=== PATIENT | female | born 1930 | race Caucasian/White ===

== ENCOUNTER 2016-10-28 19:44 | Emergency (ER) | payer MEDICARE, OTHER ==
[~2016-10-28] VITALS: Ht 152.4 cm; Wt 90.7 kg
[~2016-10-28 19:44] MED LIST: ALBUTEROL2.5 MG/3 M INH; ASPIRIN EC81 MG PO; ATROVENT HFA12.9 GM INH; CIPROFLOXACIN500 MG PO; CLARITHROMYCIN250 MG PO; CLOTRIMAZOLE15 GM TP; DONEPEZIL HCL10 MG PO; DONEPEZIL HCL5 MG PO; DUONEB 0.5 MG-33 ML INH; ELOCON15 GM TOP; FUROSEMIDE20 MG PO; IPRAT-ALBUT 0.5-3 ML INH; ISOSORBIDE MONO30 MG PO; LIDODERM700 MG TOP; LISINOPRIL; LISINOPRIL10 MG PO; METOPROLOL TART25 MG PO; METRONIDAZOLE250 MG PO; NITROGLYCERIN0.4 MG SL; NORCO 5-325 TA1 EACH PO; PREDNISONE20 MG PO; QVAR7.3 GM IH; SULFAMETHOXAZO1 EAC1 PO; SYMBICORT 16010.2 GM INH; SYNTHROID50 MCG PO; TRAMADOL HCL50 MG PO; TRAZODONE HCL50 MG PO; VITAMIN D250000 UNIT PO; ZANTAC150 MG PO; ZESTRIL5 MG PO
--- NOTE | 2016-10-29 09:50 | NUR ---
Alzheimer patient having hallucinations. Was admitted for an infection. Son and [id number] with her. Wanted a chemistry technical officer because she was hallucinating a devil--named Rasheed. Prayed with her and assured her that God was protecting her and that the devil couldn't harm her. She was released to [facility], where she lived.
== END 2016-10-28 22:59 | disposition home or self-care (01) ==
LOC: ED 19:44
DX: R44.3 Hallucinations, unspecified (principal); R10.31 Right lower quadrant pain; F03.90 Unspecified dementia, unspecified severity, without behavioral disturbance, psychotic disturbance, mood disturbance, and anxiety; I10 Essential (primary) hypertension; J44.9 Chronic obstructive pulmonary disease, unspecified; E03.9 Hypothyroidism, unspecified; E78.00 Pure hypercholesterolemia, unspecified; F41.9 Anxiety disorder, unspecified; Z87.891 Personal history of nicotine dependence; Z90.49 Acquired absence of other specified parts of digestive tract; Z90.710 Acquired absence of both cervix and uterus; Z88.0 Allergy status to penicillin; Z91.040 Latex allergy status; Z91.013 Allergy to seafood; Z91.018 Allergy to other foods; Z79.899 Other long term (current) drug therapy; Z79.891 Long term (current) use of opiate analgesic; Z79.82 Long term (current) use of aspirin
CPT/HCPCS: 70450; 71020; 74177; 80053; 81001; 83605; 83690; 85025; 87040; 96374; 96375; 99284; J1630; J2405; Q9967

== ENCOUNTER 2017-01-18 22:52 | Emergency (ER) | payer MEDICARE, OTHER ==
[~2017-01-18] VITALS: Ht 160 cm; Wt 88.0 kg
[2017-01-19] MEDS ORDERED: TRAMADOL HCL50 MG PO (01:24)
== END 2017-01-19 01:55 | disposition home or self-care (01) ==
LOC: ED 22:52
DX: S30.1XXA Contusion of abdominal wall, initial encounter (principal); I10 Essential (primary) hypertension; J44.9 Chronic obstructive pulmonary disease, unspecified; E03.9 Hypothyroidism, unspecified; E78.00 Pure hypercholesterolemia, unspecified; F41.9 Anxiety disorder, unspecified; Z87.891 Personal history of nicotine dependence; Z90.49 Acquired absence of other specified parts of digestive tract; Z90.710 Acquired absence of both cervix and uterus; Z85.3 Personal history of malignant neoplasm of breast; Z90.12 Acquired absence of left breast and nipple; Z88.0 Allergy status to penicillin; Z91.040 Latex allergy status; Z91.013 Allergy to seafood; Z91.018 Allergy to other foods; Z88.8 Allergy status to other drugs, medicaments and biological substances; Z79.899 Other long term (current) drug therapy; Z79.82 Long term (current) use of aspirin; W22.8XXA Striking against or struck by other objects, initial encounter
CPT/HCPCS: 71020; 73502; 81001; 99283

== ENCOUNTER 2017-01-21 15:03 | Emergency (ER) | payer MEDICARE, OTHER ==
[~2017-01-21] VITALS: Ht 160 cm; Wt 88.0 kg
[2017-01-21] MEDS ORDERED: QUETIAPINE FUMA25 MG PO (15:43)
[2017-01-21] MEDS ORDERED: NYSTATIN15 G2 TOP (15:44)
[2017-01-21] MEDS ORDERED: NORCO 5-325 TA1 EACH PO (15:52)
== END 2017-01-21 16:05 | disposition home or self-care (01) ==
LOC: ED 15:03
DX: M25.511 Pain in right shoulder (principal); I10 Essential (primary) hypertension; J44.9 Chronic obstructive pulmonary disease, unspecified; E03.9 Hypothyroidism, unspecified; E78.00 Pure hypercholesterolemia, unspecified; F41.9 Anxiety disorder, unspecified; Z87.891 Personal history of nicotine dependence; Z90.49 Acquired absence of other specified parts of digestive tract; Z90.710 Acquired absence of both cervix and uterus; Z90.12 Acquired absence of left breast and nipple; Z85.3 Personal history of malignant neoplasm of breast; Z88.0 Allergy status to penicillin; Z91.040 Latex allergy status; Z88.8 Allergy status to other drugs, medicaments and biological substances; Z91.018 Allergy to other foods; Z91.013 Allergy to seafood; Z79.899 Other long term (current) drug therapy; Z79.82 Long term (current) use of aspirin
CPT/HCPCS: 73030; 99283

== ENCOUNTER 2017-02-06 15:07 | Inpatient (IN) | payer MEDICARE, OTHER ==
[~2017-02-06] VITALS: Ht 160 cm; Wt 89.7 kg
[~2017-02-06 15:07] MED LIST changes: +NYSTATIN15 G2 TOP; +QUETIAPINE FUMA25 MG PO
[2017-02-06] MEDS ORDERED: SUPER B-50 COM1 EACH PO (15:44)
[2017-02-06] MEDS ORDERED: VITAMIN D32000 UNIT PO (15:45)
[2017-02-06] MEDS ORDERED: ACETAMINOPHEN325 M1 PO (15:46)
[2017-02-06] MEDS ORDERED: CHAMOSYN OINTMEN5 GM TOP (15:48)
[2017-02-06] MEDS ORDERED: LOPERAMIDE2 MG PO (15:49)
--- NOTE | 2017-02-06 16:04 | EKG ---
[facility] [address] [facility] [place] [address] Signed Sinus rhythm with premature supraventricular complexes and with occasional premature ventricular complexes Low voltage QRS Junctional ST depression, probably normal Borderline ECG When compared with ECG of 06-AUG-2016 17:16, premature ventricular complexes are now present premature supraventricular complexes are now present Right bundle branch block is no longer present Confirmed by ALISSA PAINTER MD ([id number]) on 02/06/2017 4:04:40 PM Electronically Signed By: ALISSA PAINTER MD 02/06/17 1604 PATIENT NAME: MAGALI REBOLLEDO Electrocardiogram DATE OF : [birth year] PHYSICIAN: ALISSA PAINTER MD REPORT #: [id number] REPORT IS CONFIDENTIAL AND NOT TO BE RELEASED WITHOUT AUTHORIZATION
--- NOTE | 2017-02-06 19:06 | NUR ---
PATIENT TO FLOOR AT SHIFT CHANGE FROM ED. GENE CUEVAS TOOK REPORT, PATIENT SETTLED IN BED, APPEARS PAINFUL TO RIGHT SIDE. DAUGHTER STATES " SHE FAVORS HER LEFT SIDE BECAUSE OF THE FALL." NOTED SKIN BREAKDOWN TO BOTTOM, PATIENT DAUGHTER STATED " ITS CAUSE SHE REFUSED TO GET UP AT HOME AND WOULD JUST LAY IN ONE POSITION". ATTEND PROVIDED, REPORTED PATIENT UP TO BSC IN ED, 2 PERSON ASSIST. ON 2L NC 94%, AFEBRILE. VS STABLE. CALL LIGHT WITHIN REACH. FAMILY LEFT TO GET PATIENT FOOD TO EAT FOR DINNER, PATIENT ON REGULAR DIET. SHIFT REPORT TO JAYLEN CUEVAS.
--- NOTE | 2017-02-06 20:00 | NUR ---
RECEIVED REPORT AT 1900. PT JUST ARRIVED FROM ED. PT STATED THAT HER LEGS WERE PAINFUL.
--- NOTE | 2017-02-06 22:45 | NUR ---
V/S ARE WDL, PT RECEIVED TRAMADOL 50MG PO X1 FOR BACK PAIN, EDEMA IN BOTH FEET IS +3, DORSALIS PEDIS HAD TO BE LOCATED VIA DOPPLER, BILATERAL LEG EDEMA +2. PT COMPLAINS OF INTERMITTEN NUMBNESS. FEET AND LEGS ARE WARM TO TOUCH. ALL LOBES ARE DIMINISHED BUT CLEAR. 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
--- NOTE | 2017-02-07 00:20 | NUR ---
PT IS SLEEPING AT THIS TIME.
--- NOTE | 2017-02-07 02:39 | NUR ---
V/S ARE WDL, BILATERAL LOWER LOBES HAVE CRACKLES, UPPER LOBES HAVE EXPIRATORY WHEEZING. PAIN IS WELL CONTROLLED WITH PRN ULTRAM 50MG. EDEMA IN BOTH LEGS AND FEET HAS NOT CHANGED. PT AT THIS TIME DENIES NUMBNESS AND TINGLING THOUGH. URINE OUTPUT IS ABOUT 31.25ML/HR. PICTURES OF BUTTOCKS WERE TAKEN, PT HAS SEVERAL OPEN SPOTS ON HER RIGHT BUTTOCKS AND ON HER COCCYX. PT IS UNABLE TO TURN TO LEFT SIDE DUE TO RIB AND SHOULDER PAIN. PLEASE SEE PT FILE. ALLEVYN WAS APPLIED ON COCCYX. PT IS BACK IN BED.
--- NOTE | 2017-02-07 06:03 | NUR ---
PT ARRIVED ON FLOOR AT 1900. PT COMPLAINED OF NUMBNESS AND TINGLING IN BOTH LEGS AT THAT TIME. DORSALIS PEDIS PULSES WERE LOCATED WITH DOPPLER ONLY. EDEMA ON BOTH FEET IS +4, EDEMA ON BOTH LOWER LEGS IS +2. LEGS AND FEET ARE WARM TO TOUCH AND PT IS ABLE TO STAND BUT IS VERY WEAK OVERALL. V/S ARE WDL. HER URINE OUTPUT HAS BEEN MARFINAL AT 31ML/HR BETWEEN [phone]. PO INTAKE WAS ENCOURAGED. PT HAS RIGHT SIDED PAIN OH SHOULDER AND RIBS DUE TO A FALL 2 WKS AGO STATED BY PT. PT IS ANSWERING ALL QUESTIONS APPROPRIATELY. PRN TRAMADOL IS EFFECTIVE IN CONTROLLING HER PAIN. 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 AT START OF SHIFT ALL LOBES HAD EXPIRATORY WHEEZING. AT 0300 LOWER LOBES BILAT. HAD CRACKELS AND BILAT. UPPER LOBES HAD EXPIRATORY WHEEZING. AT TIMES PT APPEARS SOB. O2 SATS HAVE BEEN >90% ON 2L O2 NC SO FAR.
--- NOTE | 2017-02-07 07:10 | NUR ---
RASH AWARE OF LOW URINE OUTPUT.
--- NOTE | 2017-02-07 09:26 | NUR ---
VERY BRIEF VISIT WITH PT, SHE IS HARD OF HEARING AND I DID NOT WANT TO SHOUT AND DISTURB EVERYONE SO I PRAYED WITH HER ANF LEFT.
--- NOTE | 2017-02-07 09:26 | NUR ---
PATIENT ASSISTED BACK TO BED FROM [place]. PATIENT HAD LOOSE STOOL. PATIENT VOIDED SMALL AMOUNT. ASSISTED BACK TO BED WITH TWO ASSIST. PATIENT HAS SOME WEAKNESS AND NEEDING ASSISTANCE. WOB INCREASED WITH ACTIVITY. PATIENT IS ALERT AND ORIENTED TO SELF AND LOCATION. PATIENT HAS DIMINISHED LUNG SOUNDS. C/O PAIN IN R SIDE. LIDOCANE PATCH PLACED ON R SIDE. EDEMA NOTED IN L AND R PEDAL AREA. PEDAL PULSES UNABLE TO PALPATE NEEDING DOPPLER.
--- NOTE | 2017-02-07 10:01 | NUR ---
PATIENT CALLED TO USE THE BSC. ASSISTED WITH A TWO ASSIST. LOOSE STOOL. ASSISTED BACK TO BED.
--- NOTE | 2017-02-07 10:51 | NUR ---
PATIENT RESTING IN BED. EYES CLOSED. PATIENT TOLERATED IV ANTIBIOTICS WELL. NO OTHER ISSUES AT THIS TIME. WILL CONTINUE TO MONITOR.
--- NOTE | 2017-02-07 12:50 | NUR ---
LOW UOP. PATIENT HAS HAD SEVERAL LOOSE STOOL WITH NO NEW URINE. UPDATED DR. PAINTER. NO NEW ORDERS AT THIS TIME. SON OF PATIENT WAS ASKING FOR CONSULT WITH DR. OCAMPO IN REGARDS TO OLD CYSTS. PLAN TO TREAT OUTPATIENT. PATIENT WAS REPOSITIONED IN BED. PILLOWS PLACED UNDER HEELS AND TO SIDES. EDUCATED PATIENT ABOUT CHANGING POSTION IN BED. CONTINUE TO HAVE EDEMA BILATERALLY. BARRIER CREAM APPLIED TO BUTTOCKS WITH C/O ITCHING. PATIENT TOOK OFF BADAGES STATING, " THEY ARE ITCHING ME". WILL CONTINUE TO MONITOR.
--- NOTE | 2017-02-07 15:29 | NUR ---
patient turned. tolerated well.
--- NOTE | 2017-02-07 15:43 | NUR ---
patient voided. patient c/o itching. patient has rash on groin and looks very irritated. patient assist to the br for bath. patient tolerated well. updated dr. car on skin condition.
--- NOTE | 2017-02-07 16:00 | NUR ---
PATIENT PARTICIPATED WITH PT.TOLERATED STADING ON EDGE OF BED WITH WALKER. NOT ABLE TO STAND FOR LONG. WAS ANXIOUS ABOUT AMBULATING IN ROOM. NO PAIN AT THIS TIME.
--- NOTE | 2017-02-07 17:14 | NUR ---
PATIENT RESTING WITH HOB ELEVATED. NO PAIN AT THIS TIME. WILL CONTINUE TO MONITOR.
--- NOTE | 2017-02-07 17:55 | NUR ---
PATIENT TOLERATED DINNER WELL. SITTING UP IN BED.
--- NOTE | 2017-02-07 18:31 | NUR ---
PATIENT ASSISTED TO BSC. PATIENT STATING R SIDE OF BUTTOCKS STARTING TO HURT. TRAMADOL GIVEN 50 MG. PATIENT WAS ABLE TO VOID 200MLS AND SMALL AMOUNT IN ATTENDS. NYSTATIN PLACED ON PANNUS AND PILLOW CASE PLACED BETWEEN SKIN FOLDS. ALOE CREAM PLACED ON BUTTOCKS. PATIENT IS REFUSING TO REDRESS OPEN AREA ON COCCYX. EDUACTION PATIENT. PATIENT STATING THIS IS THE REASON SHE IS ITCHY AND WILL NOT DO IT.
--- NOTE | 2017-02-07 18:39 | NUR ---
PATIENT HAS WORKED WITH PT. STANDING BY BED. WALKER AT BEDSIDE. CALLING. PATIENT REFUSED TO WEAR BANDAGE ON COCCYX. CREAM APPLIED. NYSTATIN PLACED UNDER PANNUS. DEMENTIA BUT ORIENTED TO SELF AND LOCATION. NEEDING REMINDERS. PLATINUM. +4 EDEMA BILATERALLY. LOW GRADE TEMP. TRADADOL GIVEN FOR PAIN.
--- NOTE | 2017-02-07 20:00 | NUR ---
RECEIVED REPORT AT 1900. FOUND PT IN BED TALKING WITH FAMILY IN ROOM. PT SEEMED IN GOOD SPIRITS.
--- NOTE | 2017-02-07 22:00 | NUR ---
AT 2100 HER TEMP WAS 99.1, PRN TYLENOL PO WAS GIVEN PER ORDER. WILL CONTINUE TO MONITOR. ALL OTHER V/S WERE WDL. BILATERAL LOWER LOBES HAVE CRACKLES, UPPER LOBES ARE DIMINISHED BUT CLEAR AT THIS TIME. PT SEEMS PHYSICALLY STRONGER TODAY. EDEMA BILATERALLY ON HER FEETIS +3, BILATERALLY LOWER LEG EDEMA IS +2. DORSALIS PEDIS BILATERALLY IS ONLY NOTED WITH DOPPLER. PT REMOVED HER LIDOCAIN PATCH AT SOME POINT DURING THE DAY STATED BY HER. URINE OUTPUT IS STILL INADEQUATE, MD AWARE. NO NEW ISSUES NOTED SO FAR.
--- NOTE | 2017-02-07 23:00 | NUR ---
PT VOIDED OVER 400ML.
--- NOTE | 2017-02-07 23:56 | NUR ---
PT IS SLEEPING AT THIS TIME
--- NOTE | 2017-02-08 02:15 | NUR ---
ASSISTED PT TO [facility]. PT VOIDED. PT NOW BACK IN BED.PT AT THIS TIME IS AFEBRILE. BILATERAL LOWER LOBES STILL HAVE CRACKLES.
--- NOTE | 2017-02-08 03:56 | NUR ---
PT IS SLEEPING.
--- NOTE | 2017-02-08 05:34 | NUR ---
AT START OF SHIFT PT HAD A TEMP OF 99.1, PRN TYLENOL WAS GIVEN. URINE OUTPUT AT THAT TIME WAS MARGINAL AT BEST. AT 0200 TEMP WAS 98.1 AND PT HAS REMAINED AFEBRILE SINCE. URINE OUPTPUT HAS ALSO INCREASED ABOVE MINIMUM. PO INTAKE WAS ENCOURAGED. PT AT TIMES IS STILL VERY PAINFUL ON HER RIGHT SIDE AND RECEIVED TRAMADOL 50MG X2 THIS SHIFT. PT HAS BEEN ALERT AND ORIENTED X4 ALL SHIFT. BILATERALLY HER LOWER LOBES HAVE CRACKLES, HER UPPER LOBES ARE CLEAR BUT DIMINISHED. EDEMA IN BOTH FEET IS STILL +3-4, EDEMA IN LOWER LEGS IS +2. BOTH FEET ARE WARM TO TOUCH. PT ALSO SEEMS STRONGER THIS SHIFT THAN YESTERDAY.
--- NOTE | 2017-02-08 07:37 | NUR ---
REPORT RECIEVED FROM MASON MAYA. PT ASLEEP SITTING UP IN BED.
--- NOTE | 2017-02-08 10:04 | NUR ---
PT USED BEDSIDE COMMODE AND IS NOW SITTING UP IN BED SAFELY WITH CALL LIGHT IN REACH. PT AGREED TO SHOWER BUT WOULD LIKE TO WAIT
--- NOTE | 2017-02-08 11:47 | NUR ---
PT IV WENT BAD AFTER SHOWER. PT ALSO STATES SHE IS ITCHING. UP TO BEDSIDE COMMODE. APPLIED DESITIN AND NYSTATIN POWDER TO REDDENED AREA ON REAR.
--- NOTE | 2017-02-08 11:55 | NUR ---
DR JAMIL OK'D TO LEAVE IV OUT.
--- NOTE | 2017-02-08 13:36 | NUR ---
PT SHOWERED AND LOTION APPLIED ALL OVER BODY FOR DRY AND ITCHY SKIN. DESITIN APPLIED TO RADHA AREA AGAIN. PT UP TO BEDSIDE COMMODE.
--- NOTE | 2017-02-08 13:39 | NUR ---
PT CONTINUES TO DECLINE ALLYVN TO COCCYX AREA. STATES IT MAKE IT ITCH MORE.
--- NOTE | 2017-02-08 18:14 | NUR ---
PT DID WELL TODAY. WALKED WITH FEDERAL DISTRICT CLERK. ULTRAM GIVEN ONCE FOR RIB PAIN. LIDODERM PATCH IN PLACE. SWELLING REMAINS UNCHANGED. LUNGS CLEAR. 1PA TO COMMODE.
--- NOTE | 2017-02-08 20:00 | NUR ---
RECEIVED REPORT AT 1900. FOUND PT IN BED SLEEPING.
--- NOTE | 2017-02-08 22:00 | NUR ---
V/S ARE WDL. ALL LOBES HAD EXIPRATORY WHEEZING EVEN AFTER BREATHING TREATMENT. EDEMA IN BOTH FEET IS STILL +3, BOTH LOWER LEGS EDEMA IS STILL +2. PT RECEIVED TRAMADOL 50MG X2 SINCE START OF SHIFT DUE TO RIGHT SIDED HIP PAIN. OVERALL PT SEEMS STRONGER TODAY. SON IS WILLING TO DO LOVENOX SHOTS. I DID EDUCATE HIM ON HOW TO DO IT. HE WILL DO HANDS ON TOMORROW. NO NEW ISSUES NOTED SO FAR.
--- NOTE | 2017-02-09 00:07 | NUR ---
PT IS SLEEPING.
--- NOTE | 2017-02-09 02:04 | NUR ---
PT IS SLEEPING.
--- NOTE | 2017-02-09 02:26 | NUR ---
ASSISTED PT TO BSC. PT VOIDED 100ML. PT AT THIS TIME IS SITTING UP AT SIDE OF BED. ALL LOBES ARE CLEAR AT THIS TIME. BILATERAL FOOT AND LOWER LEG EDEMA IS UNCHANGED. NO NEW ISSUES NOTED SO FAR.
--- NOTE | 2017-02-09 03:58 | NUR ---
PT IS STILL SITTING AT SIDE OF BED. PT APPEARS TO BE DOZING.
--- NOTE | 2017-02-09 05:14 | NUR ---
AT START OF SHIFT PT HAD EXIPRATORY WHEEZING THROUGHOUT. I EDUCATED HER SON ON HOW, PT WAS VERY PAINFUL AT FIRST AND RECEIVED 50MG OF TRAMADOL X2 AND 650MG OF TYLENOL. TO ADMINISTER LOVENOX SHOTS. THROUGHOUT SHIFT V/S HAVE BEEN WDL, EDEMA ON FEET IS +3 AND EDEMA ON LOWER LEGS IS +2, PT HAD A BM X1. PT HAS NOT BEEN SLEEPING SINCE ABOUT 0400 OR SO. PT STILL REFUSES TO BE TURNED TO HER RIGHT SIDE. NO NEW ISSUES NOTED.
--- NOTE | 2017-02-09 07:32 | NUR ---
REPORT RECIEVED FROM JAYLEN. PT SITTING UP ON EDGE OF BED AND REPORTS NOT SLEEPING WELL LAST NIGHT.
--- NOTE | 2017-02-09 08:03 | NUR ---
CALLED PHARM. TO HAVE THYROID MED RETIMED. ADMINISTERED MORN. MEDS. PT NOW SITTING UP IN CHAIR EATING BREAKFAST. PT GIVEN PRN ULTRAM AND LIDO PATCH FOR PAIN 5\10.
--- NOTE | 2017-02-09 08:16 | NUR ---
WE WOKE UP AND SHE USED THE RESTROOM, DID A LITTLE AM CARE, AND IS SITTING UP IN THE CHAIR FOR BREAKFAST!
--- NOTE | 2017-02-09 09:59 | NUR ---
PT TOLD CLOSER ON SHE WOULD LIKE PAIN MEDS. WENT IN TO DISCUSS THAT SHE HAD HAD THEM THIS MORNING. STATES SHE IS NOT IN PAIN JUST UNCOMFORTABLE.
--- NOTE | 2017-02-09 11:27 | NUR ---
PT UP WALKING IN PINA WITH PHYS. THER. FAMILY WITH THEM.
--- NOTE | 2017-02-09 17:27 | NUR ---
PT SHOWERED TODAY. DESITIN AND NYSTATIN APPLIED TO BUTTOCKS AND PANNUS. PT UP IN CHAIR AND SIDE OF BED ALL DAY. WALKED IWTH PHYS. THER. ULTRAM X2. LIDO PATCH. NO IV.
--- NOTE | 2017-02-09 19:15 | NUR ---
REPORT RECVD FROM ROBERT CUEVAS. IN TO SEE PT, PT SITTING UP AT BEDSIDE. BM NOTED ON TODAYS SHIFT. NO IV ACCESS AT THIS TIME. WARM BLANKET GIVEN. NO FURTHER NEEDS AT THIS TIME. CALL LIGHT IN REACH.
--- NOTE | 2017-02-09 21:00 | NUR ---
IN TO SEE PT, PT SITTING UP AT SIDE OF BED. PT STATES SHE HAD A GOOD DAY. REQUESTING MEDICATION FOR R SHOULDER PAIN, SCHEDULED MEDICATION GIVEN. ASSESSMENT COMPLETE AND PM MEDICATIONS GIVEN. PT ASSIST UP TO BSC. DESITIN APPLIED TO BUTTOCKS. ASSISTED INTO BED, WARM BLANKET GIVEN. NO FURTHER NEEDS AT THIS TIME. CALL LIGHT IN PLACE.
--- NOTE | 2017-02-09 22:06 | NUR ---
ASSISTED PATIENT TO USE THE BEDSIDE COMMODE WITH FRONT WHEEL WALKER. PATIENT IS BACK IN BED . CALL LIGHT WITHIN REACH.
--- NOTE | 2017-02-09 23:30 | NUR ---
PT CALLED, ASSISTED UP TO BSC WITH 1 PERSON STANDBY. DESITIN APPLIED TO BUTTOCKS. ASSISTED BACK TO BED. REPOSITIONED IN BED FOR COMFORT. NO FURTHER NEEDS AT THIS TIME. CALL LIGHT IN REACH.
--- NOTE | 2017-02-10 01:10 | NUR ---
IN TO SEE PT, PT ATTEMPTING TO CALL RN WITH TV REMOTE. PT ASSISTED UP TO BSC, TOLERATED WELL. DESITIN APPLIED TO BUTTOCKS. PT C/O 11/21 BACK PAIN, REQUESTING MEDICATION. PT OFFERED TYLENOL. PT STATE "IT DOESN'T WORK FOR ME, BUT I WILL TRY IT." TYLENOL GIVEN. PT REPOSTIONED IN BED FOR COMFORT. NO FURTHER NEEDS AT THIS TIME, CALL LIGHT IN REACH.
--- NOTE | 2017-02-10 04:05 | NUR ---
PT CALLED ASSISTED UP TO BSC BY ANIMAL CARETAKER. PT REQUEST TO SIT IN CHAIR. PT ASSISTED TO CHAIR. WARM BLANKETS GIVEN. TV ON. NO FURTHER NEEDS, CALL LIGHT IN PLACE.
--- NOTE | 2017-02-10 05:00 | NUR ---
PATIENT CALLED AND ASSISTED TO USE THE COMMODE. PATIENT IS UP IN THE CHAIR WATCHING TV. CALL LIGHT IS WITHIN REACH.
--- NOTE | 2017-02-10 05:20 | NUR ---
PT HAS SLEPT INTERMITTENLY DURING SHIFT. PT UP TO BSC WITH STANDBY ASSIST. DESITIN APPLIED TO BUTTOCKS. ULTRAM AND TYLENOL GIVEN FOR PAIN.
--- NOTE | 2017-02-10 08:30 | NUR ---
PT CALLED OUT AND SAID SHE NEEDED TO GO TO THE BATHROOM, WENT TO HELP HER, SHE HAD A LOOSE BM, GOT HER TO THE COMMODE AND SHE STILL WENT A LOT MORE, PT SAID SHE HAD A GREAT BREAKFAST BUT IT WENT RIGHT THROUGH HER. SHE ALSO SAID SHE HOPES WE STOP GIVING HER THAT STUFF THAT MAKES HER GO TO THE BATHROOM SO FAST. WENT AHEAD AND GAVE THE PT A BED BATH AND GOT HER BACK TO THE CHAIR. NURSE STEVENS IS IN THE ROOM WITH HER GIVING HER MEDS
--- NOTE | 2017-02-10 09:56 | NUR ---
PATIENT UP IN CHAIR WATCHING TV, CALL LIGHT IN REACH.
--- NOTE | 2017-02-10 09:57 | NUR ---
PATIENT IS SITTING UP IN HER CHAIR WATCHING TV. BEDBATH GIVEN BY RIAZ EARLIER THIS MORNING.
--- NOTE | 2017-02-10 10:33 | NUR ---
Patient sitting up in chair visiting with family.
--- NOTE | 2017-02-10 11:16 | NUR ---
Patient up to bathroom for unmeasured voids. Anyi care done. Patient up to work with physical therapy.
--- NOTE | 2017-02-10 13:00 | NUR ---
PATIENT UP TO WORK WITH PT. SON HERE TO VISIT PATIENT.
[2017-02-10] MEDS ORDERED: QUETIAPINE FUMA25 MG PO (13:39)
[2017-02-10] MEDS ORDERED: LIDODERM1 EACH TD (13:48)
[2017-02-10] MEDS ORDERED: ELOCON15 G1 TOP (13:51)
--- NOTE | 2017-02-10 15:00 | NUR ---
PATIENT SLEEPING IN NO DISTRESS.
--- NOTE | 2017-02-10 17:48 | NUR ---
PATIENT UP IN CHAIR, CALL LIGHT IN REACH
--- NOTE | 2017-02-10 17:57 | NUR ---
PATIENT'S VITALS TAKEN AT THIS TIME.
--- NOTE | 2017-02-10 18:51 | NUR ---
PATIENT DOING WELL. SPENT MOST OF THE DAY WATCHING TV IN THE CHAIR. PATIENT HAS HAD PAIN TO RIGHT SIDE OF BACK FOR MOST OF THE DAY. PATIENT HAS LIDODERM PATCH TO RIGHT SIDE OF BACK, PATIENT HAS RECIEVED ULTRAM. PATIENT IS ALERT, USES CALL LIGHT FOR NEEDS.
[2017-02-10] MEDS ORDERED: WARFARIN SODIU2.5 MG PO (19:19)
--- NOTE | 2017-02-10 19:20 | NUR ---
REPORT RECVD FROM HILDA CUEVAS. IN TO SEE PT, PT AWAKE WATCHING TV. PT STATES SHE HAD A GOOD DAY. WORKED WITH PT. NO FURTHER NEEDS AT THIS TIME. FAMILY IN ROOM TO VISIT. CALL LIGHT IN REACH.
--- NOTE | 2017-02-10 21:10 | NUR ---
IN TO SEE PT, PT IN BED WATCHING TV. ASSESSMENT COMPLETE AND PM MEDICATIONS GIVEN. ASSIST P TO BATHROOM WITH FWW TO VOID. DESITIN APPLIED TO BUTTOCKS. PT ASSISTED BACK TO BED. REPOSITIONED WITH PILLOWS FOR COMFORT. NO FURTHER NEEDS AT THIS TIME. CALL LIGHT IN REACH.
--- NOTE | 2017-02-10 22:17 | NUR ---
IN TO SEE PT, PT REQUESTING MEDICATION FOR SORENESS IN BUTTOCKS. PRN TYLENOL GIVEN. PT IN BED WATCHING TV. NO FUTHER NEEDS AT THIS TIME. CALL LIGHT IN REACH.
--- NOTE | 2017-02-10 23:27 | NUR ---
PATIENT CALLED WANTS TO USE THE COMMODE, SAT THERE FOR MINUTES, PATIENT STATED SHE CANT VOID, WANTS TO WALK TO THE TOILET. PATIENT INSTRUCTED ME TO FLUSH THE TOILET AND IT WILL HELP HER VOID. PATIENT VOIDED, NOT MEASURED.
--- NOTE | 2017-02-10 23:31 | NUR ---
PATIENT WANTS TO SIT BY THE BED. CALL LIGHT IS WITHIN REACH. DRAPE IS OPEN FOR NURSES TO KEEP AN EYE. INSTRUCTED TO USE THE CALL LIGHT FOR HELP AND NOT TO GET UP BY HERSELF.
--- NOTE | 2017-02-10 23:45 | NUR ---
PT SITTING UP AT BEDSIDE, WATCHING TV. NO FURTHER NEEDS AT THIS TIME, CALL LIGHT IN REACH.
--- NOTE | 2017-02-11 00:25 | NUR ---
ASSISTED MASON MCKEON TO BOOST THE PATIENT UP IN THE BED.
--- NOTE | 2017-02-11 00:26 | NUR ---
ASSISTED PT BACK TO BED. PT REPOSITIONED WITH PILLOWS FPR COMFORT. NO FURTHER NEEDS AT THIS TIME. LIGHTS OUT, CALL LIGHT IN REACH.
--- NOTE | 2017-02-11 05:02 | NUR ---
ASSISTED PATIENT TO THE BATHROOM USING WALKER AND BACK TO BED. CALL LIGHT WITHIN REACH.
--- NOTE | 2017-02-11 05:07 | NUR ---
PT HAS HAD UNEVENTFUL SHIFT, RESTED INTERMITTENTLY. PT C/O PAIN IN BUTTOCKS, PRN MEDICATION GIVEN. DESITIN AND NYSTATIN APPLIED. O2 @ 2L. 1 PERSON ASSIST TO BATHROOM WITH FWW. NO IV ACCESS. CALLS APPROPRIATLEY. D/C TO EBM TODAY.
--- NOTE | 2017-02-11 07:44 | NUR ---
PT SITTING UP IN RECLINER EYES CLOSED, RESP EVEN. NO DISTRESS NOTED
--- NOTE | 2017-02-11 08:30 | NUR ---
ASSISTED PATIENT WITH SHOWER. RADHA AND SKIN CARE DONE. LINENS CHANGED. REFUSED ORAL CARE AT THIS TIME. CALL BUTTON IN REACH RT IN ROOM.
--- NOTE | 2017-02-11 10:55 | NUR ---
EMAILED DC INSTRUCTIONS TO RANJIT RAYGOZA. RENATO ROBERTSON RN WAS HERE TO SEE PT. TALKED WITH SONGUERRERO AND HE IS PLANNING ON COMING UP AND PICKING HER UP.
--- NOTE | 2017-02-11 10:55 | NUR ---
PT AND SON IN ROOM FOR DISCHARGE PACKET EDUCATION ON CONITNUED CARE PLAN. DISCUSSED FOLLOW UP APPOINTMENT AND ORDER TO HAVE BLOOD DRAW IN THE AM OF FEB 7 BEFORE FOLLOW UP APPOINTMENT. DISCUSSED WARFARIN MEDICATIONS SCHEDULE AND PRECAUTIONS. DISCUSSED PAIN MANGEMENT PLAN FOR HOME. PT AND SON ALL VERBAIZE UNDERSTANDING OF EDUCATION. AND HAVE NO OTHER CONCERNS. DISCUSSED PT NEEDING TO STAY ACTIVE TOLERATED. PORTABLE OXYGEN TANK SENT FOR RIDE HOME TO RANJIT RAYGOZA. V/S STABLE
--- NOTE | 2017-02-11 12:55 | NUR ---
FAXED CHART NOTES INCLUDING FACESHEET, ORDERS, H AND P, DC SUMMARY AND PT AND OT EVALS AND NOTES TO [facility].
== END 2017-02-11 11:00 | disposition home or self-care (01) | DRG 300 ==
LOC: ED 15:07 → MS 18:18
PROVIDERS: ADMIT Internal Medicine
DX: I82.4Z3 Acute embolism and thrombosis of unspecified deep veins of distal lower extremity, bilateral (principal); J96.11 Chronic respiratory failure with hypoxia; R53.81 Other malaise; J44.9 Chronic obstructive pulmonary disease, unspecified; I25.10 Atherosclerotic heart disease of native coronary artery without angina pectoris; E03.9 Hypothyroidism, unspecified; G89.4 Chronic pain syndrome; G31.84 Mild cognitive impairment of uncertain or unknown etiology; L89.159 Pressure ulcer of sacral region, unspecified stage
CPT/HCPCS: 36415; 71010; 80048; 80053; 81001; 82550; 83605; 83735; 83880; 84484; 85025; 85610; 93005; 93010; 93970; 94640; 94762; 97110; 97116; 97163; 97165; 97530; 97535; J0696; J1650; J7030

== ENCOUNTER 2017-05-12 08:32 | Emergency (ER) | payer MEDICARE, OTHER ==
[~2017-05-12] VITALS: Ht 152.4 cm; Wt 89.7 kg
[~2017-05-12 08:32] MED LIST changes: +ACETAMINOPHEN325 M1 PO; +CHAMOSYN OINTMEN5 GM TOP; +ELOCON15 G1 TOP; +LIDODERM1 EACH TD; +LOPERAMIDE2 MG PO; +SUPER B-50 COM1 EACH PO; +VITAMIN D32000 UNIT PO; +WARFARIN SODIU2.5 MG PO
[2017-05-12] MEDS ORDERED: NORCO 5-325 TA1 EACH PO (08:48)
[2017-05-12] MEDS ORDERED: VOLTAREN100 GM TOP (08:49)
[2017-05-12] MEDS ORDERED: TAMIFLU75 MG PO (10:55)
[2017-05-12] MEDS ORDERED: PREDNISONE10 MG PO (10:55)
--- NOTE | 2017-05-12 13:38 | EKG ---
[facility] [address] [place] [address] Signed Normal sinus rhythm Incomplete right bundle branch block Borderline ECG When compared with ECG of 06-FEB-2017 15:52, premature ventricular complexes are no longer present premature supraventricular complexes are no longer present Incomplete right bundle branch block is now present Confirmed by ISAAK JAMIL MD ([id number]) on 05/12/2017 1:38:25 PM Electronically Signed By: ISAAK JAMIL MD 05/12/17 1338 PATIENT NAME: MAGALI REBOLLEDO Electrocardiogram DATE OF : [birth year] PHYSICIAN: ISAAK JAMIL MD REPORT #: [id number] REPORT IS CONFIDENTIAL AND NOT TO BE RELEASED WITHOUT AUTHORIZATION
== END 2017-05-12 11:25 | disposition home or self-care (01) ==
LOC: ED 08:32
DX: J44.1 Chronic obstructive pulmonary disease with (acute) exacerbation (principal); J10.1 Influenza due to other identified influenza virus with other respiratory manifestations; I10 Essential (primary) hypertension; E03.9 Hypothyroidism, unspecified; F41.9 Anxiety disorder, unspecified; G47.00 Insomnia, unspecified; Z87.891 Personal history of nicotine dependence; Z88.0 Allergy status to penicillin; Z91.040 Latex allergy status; Z91.013 Allergy to seafood; Z91.018 Allergy to other foods; Z88.1 Allergy status to other antibiotic agents; Z79.01 Long term (current) use of anticoagulants; Z79.899 Other long term (current) drug therapy
CPT/HCPCS: 71046; 80053; 83605; 83735; 84484; 85025; 85610; 87040; 87502; 93005; 93010; 94640; 99284; J7512

== ENCOUNTER 2017-06-01 14:29 | Inpatient (IN) | payer MEDICARE, OTHER ==
[~2017-06-01] VITALS: Ht 160 cm; Wt 84.7 kg
[~2017-06-01 14:29] MED LIST changes: +PREDNISONE10 MG PO; +TAMIFLU75 MG PO; +VOLTAREN100 GM TOP
[2017-06-01] MEDS ORDERED: SEROQUEL50 MG PO (14:56)
[2017-06-01] MEDS ORDERED: ULTRAM50 MG PO (14:57)
--- NOTE | 2017-06-02 00:02 | EKG ---
[facility] [address] [facility] [place] [address] Signed Multifocal atrial tachycardia Low voltage QRS Right bundle branch block Abnormal ECG When compared with ECG of 01-JUN-2017 15:24, (Unconfirmed) Junctional rhythm has replaced Sinus rhythm Confirmed by ISAAK JAMIL MD ([id number]) on 06/02/2017 12:02:22 AM Electronically Signed By: ISAAK JAMIL MD 06/02/17 0002 PATIENT NAME: MAGALI REBOLLEDO VALERIE Electrocardiogram DATE OF : [birth year] PHYSICIAN: ISAAK JAMIL MD REPORT #: [id number] REPORT IS CONFIDENTIAL AND NOT TO BE RELEASED WITHOUT AUTHORIZATION
--- NOTE | 2017-06-02 00:02 | EKG ---
[facility] [address] [facility] [place] [address] Signed Normal sinus rhythm Low voltage QRS Right bundle branch block Abnormal ECG When compared with ECG of 12-MAY-2017 08:41, No significant change was found Confirmed by ISAAK JAMIL MD ([id number]) on 06/02/2017 12:01:50 AM Electronically Signed By: ISAAK JAMIL MD 06/02/17 0002 PATIENT NAME: MAGALI REBOLLEDO VALERIE Electrocardiogram DATE OF : [birth year] PHYSICIAN: ISAAK JAMIL MD REPORT #: [id number] REPORT IS CONFIDENTIAL AND NOT TO BE RELEASED WITHOUT AUTHORIZATION
[2017-06-02] MEDS ORDERED: SYMBICORT 16010.2 GM INH (18:53)
[2017-06-02] MEDS ORDERED: ELOCON15 G1 TOP (19:02)
[2017-06-02] MEDS ORDERED: NITROSTAT0.4 MG SL (19:03)
[2017-06-04] MEDS ORDERED: DOXYCYCLINE HY100 MG PO (13:49)
[2017-06-04] MEDS ORDERED: PREDNISONE20 MG PO (13:52)
[2017-06-04] MEDS ORDERED: TESSALON PERLE100 MG PO (13:54)
== END 2017-06-05 12:15 | disposition home or self-care (01) | DRG 191 ==
LOC: ED 14:29 → CCU 19:15 → MS 06-03 13:45
PROVIDERS: ADMIT Internal Medicine
DX: J44.1 Chronic obstructive pulmonary disease with (acute) exacerbation (principal); I47.2 Ventricular tachycardia; J96.11 Chronic respiratory failure with hypoxia; J96.12 Chronic respiratory failure with hypercapnia; I25.10 Atherosclerotic heart disease of native coronary artery without angina pectoris; E03.9 Hypothyroidism, unspecified; F03.90 Unspecified dementia, unspecified severity, without behavioral disturbance, psychotic disturbance, mood disturbance, and anxiety; I10 Essential (primary) hypertension; F41.9 Anxiety disorder, unspecified; Z87.891 Personal history of nicotine dependence; Z88.0 Allergy status to penicillin; Z86.718 Personal history of other venous thrombosis and embolism; Z85.3 Personal history of malignant neoplasm of breast; Z79.01 Long term (current) use of anticoagulants
CPT/HCPCS: 36415; 36600; 51702; 71045; 80053; 81001; 82803; 83605; 83880; 84484; 85025; 85610; 87040; 87070; 87205; 87502; 93005; 93010; 94640; 94667; 94668; 94760; 97162; J2920; J2930; J7120; J7512

== ENCOUNTER 2017-08-24 11:27 | Emergency (ER) | payer MEDICARE, OTHER ==
[~2017-08-24] VITALS: Ht 160 cm; Wt 84.9 kg
[~2017-08-24 11:27] MED LIST changes: +DOXYCYCLINE HY100 MG PO; +NITROSTAT0.4 MG SL; +SEROQUEL50 MG PO; +TESSALON PERLE100 MG PO; +ULTRAM50 MG PO
[2017-08-24] MEDS ORDERED: XARELTO10 MG PO (11:47)
[2017-08-24] MEDS ORDERED: METHYLPREDNISOLO4 M1 PO (13:05)
--- NOTE | 2017-08-24 21:30 | EKG ---
[facility] [address] [facility] [place] [address] Signed Normal sinus rhythm Low voltage QRS Incomplete right bundle branch block Borderline ECG When compared with ECG of 01-JUN-2017 18:53, Previous ECG has undetermined rhythm, needs review Non-specific change in ST segment in Anterior leads Confirmed by ISAAK JAMIL MD ([id number]) on 08/24/2017 9:30:07 PM Electronically Signed By: ISAAK JAMIL MD 08/24/17 2130 PATIENT NAME: MAGALI REBOLLEDO VALERIE Electrocardiogram DATE OF : [birth year] PHYSICIAN: ISAAK JAMIL MD REPORT #: [id number] REPORT IS CONFIDENTIAL AND NOT TO BE RELEASED WITHOUT AUTHORIZATION
== END 2017-08-24 13:36 | disposition home or self-care (01) ==
LOC: ED 11:27
DX: J44.1 Chronic obstructive pulmonary disease with (acute) exacerbation (principal); E03.9 Hypothyroidism, unspecified; I10 Essential (primary) hypertension; J44.9 Chronic obstructive pulmonary disease, unspecified; F41.9 Anxiety disorder, unspecified; Z87.891 Personal history of nicotine dependence; Z88.0 Allergy status to penicillin; Z91.040 Latex allergy status; Z91.013 Allergy to seafood; Z91.018 Allergy to other foods; Z88.8 Allergy status to other drugs, medicaments and biological substances; Z79.899 Other long term (current) drug therapy
CPT/HCPCS: 36415; 71045; 80053; 83735; 83880; 84484; 85025; 93005; 93010; 94640; 96374; 99284; J2930

== ENCOUNTER 2017-09-21 12:59 | Emergency (ER) | payer MEDICARE, OTHER ==
[~2017-09-21] VITALS: Ht 160 cm; Wt 84.9 kg
[~2017-09-21 12:59] MED LIST changes: +METHYLPREDNISOLO4 M1 PO; +XARELTO10 MG PO
[2017-09-21] MEDS ORDERED: ISOSORBIDE DINI30 MG PO (13:14)
[2017-09-21] MEDS ORDERED: BACTROBAN15 GM (13:16)
--- NOTE | 2017-09-22 07:07 | EKG ---
[facility] [address] [facility] [place] [address] Signed Sinus tachycardia with premature atrial complexes Low voltage QRS Right bundle branch block Abnormal ECG When compared with ECG of 24-AUG-2017 11:36, premature atrial complexes are now present Non-specific change in ST segment in Anterior leads Confirmed by ALISSA PAINTER MD ([id number]) on 09/22/2017 7:06:48 AM Electronically Signed By: ALISSA PAINTER MD 09/22/17 0707 PATIENT NAME: MAGALI REBOLLEDO VALERIE Electrocardiogram DATE OF : [birth year] PHYSICIAN: ALISSA PAINTER MD REPORT #: [id number] REPORT IS CONFIDENTIAL AND NOT TO BE RELEASED WITHOUT AUTHORIZATION
== END 2017-09-21 15:13 | disposition home or self-care (01) ==
LOC: ED 12:59
PROC: 0T9B70Z Drainage of Bladder with Drainage Device, Via Natural or Artificial Opening (ICD-10-PCS; principal; 2017-09-21)
DX: R06.02 Shortness of breath (principal); L89.322 Pressure ulcer of left buttock, stage 2; I10 Essential (primary) hypertension; J44.9 Chronic obstructive pulmonary disease, unspecified; E03.9 Hypothyroidism, unspecified; F41.9 Anxiety disorder, unspecified; Z88.0 Allergy status to penicillin; Z91.040 Latex allergy status; Z91.013 Allergy to seafood; Z91.018 Allergy to other foods; Z88.1 Allergy status to other antibiotic agents; Z79.899 Other long term (current) drug therapy
CPT/HCPCS: 51701; 71045; 80048; 81001; 83605; 83880; 84484; 85025; 93005; 93010; 94640; 96374; 99283; J2930

== ENCOUNTER 2018-04-26 13:53 | Emergency (ER) | payer MEDICARE, OTHER ==
[~2018-04-26] VITALS: Ht 160 cm; Wt 84.9 kg
[~2018-04-26 13:53] MED LIST changes: +BACTROBAN15 GM; +ISOSORBIDE DINI30 MG PO; +MOISTURE BARRI113 GM TOP
[2018-04-26] MEDS ORDERED: ULTRAM50 MG PO (16:30)
== END 2018-04-26 16:50 | disposition home or self-care (01) ==
LOC: ED 13:53
DX: M17.11 Unilateral primary osteoarthritis, right knee (principal); I10 Essential (primary) hypertension; J44.9 Chronic obstructive pulmonary disease, unspecified; E03.9 Hypothyroidism, unspecified; E78.00 Pure hypercholesterolemia, unspecified; F41.9 Anxiety disorder, unspecified; Z87.891 Personal history of nicotine dependence; Z90.710 Acquired absence of both cervix and uterus; Z88.0 Allergy status to penicillin; Z88.1 Allergy status to other antibiotic agents; Z91.038 Other insect allergy status; Z91.018 Allergy to other foods; Z91.040 Latex allergy status; Z79.899 Other long term (current) drug therapy; Z79.01 Long term (current) use of anticoagulants; Z86.718 Personal history of other venous thrombosis and embolism
CPT/HCPCS: 73560; 93971; 99284-25